=== PATIENT | male | born 1990 | race Caucasian/White ===

== ENCOUNTER 2017-06-08 06:33 | Emergency (ER) | payer SELFPAY ==
[~2017-06-08] VITALS: Ht 172.7 cm; Wt 136.1 kg
[2017-06-08 06:41] VITALS: BP 154/87
== END 2017-06-08 07:45 | disposition home or self-care (01) ==
LOC: ED 06:33
DX: S93.601A Unspecified sprain of right foot, initial encounter (principal); W00.2XXA Other fall from one level to another due to ice and snow, initial encounter; Y93.01 Activity, walking, marching and hiking; Y92.89 Other specified places as the place of occurrence of the external cause; Y99.8 Other external cause status